=== PATIENT | female | born 1975 | race Caucasian/White ===

== ENCOUNTER 2022-04-11 04:24 | Day surgery (SDC) | payer OTHER ==
[2022-04-04 15:28] VITALS: BMI 21.2
[2022-04-11] MEDS ORDERED: PROPOFOL 20 ML ONE (13:01)
[2022-04-11] MEDS ORDERED: MIDAZOLAM HCL 2 MG/2 ML SINGLE DOSE VIAL ONE (13:01)
[2022-04-11] MEDS ORDERED: LIDOCAINE HCL/PF 2% SDV 5ML VIAL ONE (13:01)
[2022-04-11] MEDS ORDERED: ONDANSETRON 4 MG/2 ML VIAL ONE (13:01)
[2022-04-11] MEDS ORDERED: DEXAMETHASONE SOD PHOSPHATE 4 MG/1 ML VIAL ONE (13:01)
[2022-04-11] MEDS ORDERED: ceFAZolin SODIUM 1 GM VIAL IVPB ONE (13:41)
[2022-04-11] MEDS ORDERED: ceFAZolin SODIUM 1 GM VIAL ONE (13:41)
[2022-04-11] MEDS ORDERED: ONDANSETRON 4 MG/2 ML VIAL IVPUSH PRN ×2 (13:52→15:12)
[2022-04-11] MEDS ORDERED: oxyCODONE HCL 5 MG TABLET PO PRN ×2 (13:52→15:12)
[2022-04-11] MEDS ORDERED: LACTATED RINGERS SOLUTION 1,000 ML IV SCH (14:00)
[2022-04-11] MEDS ORDERED: SUCCINYLCHOLINE CHLORIDE 200 MG/10 ML SYRINGE ONE (14:36)
[2022-04-11] MEDS ORDERED: IBUPROFEN 800 MG/8 ML IJ IVPB PRN (15:12)
[2022-04-11] MEDS ORDERED: IBUPROFEN 600 MG TABLET (FP) PO PRN (15:12)
[2022-04-11] MEDS ORDERED: ELECTROLYTE-148 SOLN 1,000 ML IV SCH (15:15)
[2022-04-11] MEDS ORDERED: oxyCODONE HCL 5 MG TABLET ONE (17:05)
[2022-04-11 17:14] VITALS: RESP 16
[2022-04-11 17:54] VITALS: BP 108/46; PULSE 79; TEMP 98.2
== END 2022-04-11 17:45 | disposition home or self-care (01) ==
LOC: JASU-SURG 04:24
PROVIDERS: ATTEND Obstetrics & Gynecology
PROC: 0UBM0ZZ Excision of Vulva, Open Approach (ICD-10-PCS; principal; 2022-04-11 14:00)
DX: N90.69 Other specified hypertrophy of vulva (principal)
CPT/HCPCS: 81025; 88305-TC; 94760